=== PATIENT | female | born 1945 | race Caucasian/White ===

== ENCOUNTER → 2019-10-04 | Outpatient (CLI) | payer MEDICARE, OTHER ==
[~2019-10-04] MED LIST: ASPI-515 PO; B2/V1TAB PO; BIFI4CAP PO; CALC-138 PO; CHOL200052 PO; ESTR42.53 VG; FLUT16SP2 NAS; HYDR25TA6 PO; MULT-717 PO; OMEG1CAP49 PO; POLY119P4 PO; SIMV20TA19 PO
== END | disposition home or self-care (01) ==
LOC: CFH 10:10
PROVIDERS: ATTEND Internal Medicine Hematology & Oncology
DX: C50.912 Malignant neoplasm of unspecified site of left female breast (principal); M85.88 Other specified disorders of bone density and structure, other site
CPT/HCPCS: 77080

== ENCOUNTER → 2019-12-09 | Outpatient (CLI) | payer MEDICARE, OTHER ==
[~2019-12-09] MED LIST changes: +PARO7.5C PO
[2019-12-09 11:55] LABS: INTERNATIONAL NORMALIZED RATIO 0.93 (0.93-1.1); PROTHROMBIN TIME 9.9 Seconds (9.6-11.5)
== END | disposition home or self-care (01) ==
LOC: STAR 10:35
PROVIDERS: ATTEND Orthopaedic Surgery
DX: Z01.818 Encounter for other preprocedural examination (principal); M16.12 Unilateral primary osteoarthritis, left hip; M25.552 Pain in left hip
CPT/HCPCS: 36415; 85610; 85730; 87081; 93005

== ENCOUNTER 2019-12-21 06:49 | Day surgery (SDC) | payer MEDICARE, OTHER ==
[2019-12-09 11:35] VITALS: BP 150/87
[~2019-12-21] VITALS: Ht 160 cm; Wt 63.6 kg
[~2019-12-21 06:49] MED LIST changes: +EPINEPHRINE 1 MG/ML, 1ML ONE; +KETOROLAC 60 MG/2 ML ONE; +ROPIvacaine/PF 0.5%, 20 ML ONE; +ROPIvacaine/PF 0.5%, 30 ML ONE; +SODIUM CHLORIDE 0.9% 50 ML ONE; +TRANEXAMIC ACID 100 MG/ML, 10ML ONE; +VANCOMYCIN 1,000 MG ONE
[2019-12-21] MEDS ORDERED: LACTATED RINGERS 1,000 ML IV SCH (07:16)
[2019-12-21] MEDS ORDERED: FENTANYL PF 250 MCG/5ML ONE (07:30)
[2019-12-21] MEDS ORDERED: LIDOCAINE-MPF 1%, 2ML INFIL ONE (07:30)
[2019-12-21] MEDS ORDERED: GABAPENTIN 300 MG CAPSULE PO ONE (07:30)
[2019-12-21] MEDS ORDERED: CHLORHEXIDINE 15 ML UDC MM ONE (07:30)
[2019-12-21] MEDS ORDERED: ACETAMINOPHEN 500 MG TABLET PO ONE (07:30)
[2019-12-21] MEDS ORDERED: ROCURONIUM 10MG/ML,5ML ONE (07:37)
[2019-12-21] MEDS ORDERED: NEOSTIGMINE 1 MG/ML, 10ML ONE (07:37)
[2019-12-21] MEDS ORDERED: ONDANSETRON 2MG/ML, 2ML ONE (07:37)
[2019-12-21] MEDS ORDERED: GLYCOPYRROLATE 0.2MG/1ML, 5ML ONE (07:37)
[2019-12-21] MEDS ORDERED: DEXAMETHASONE 4 MG/ML, 1ML ONE (07:37)
[2019-12-21] MEDS ORDERED: CEFAZOLIN 1,000 MG ONE (07:37)
[2019-12-21] MEDS ORDERED: PROPOFOL 10 MG/ML, 20ML ONE (07:37)
[2019-12-21] MEDS ORDERED: SUCCINYLCHOLINE 20 MG/ML, 10ML ONE (07:37)
[2019-12-21] MEDS ORDERED: NS + 20MEQ KCL 1,000 ML IV SCH (08:22)
[2019-12-21] MEDS ORDERED: ONDANSETRON 2MG/ML, 2ML IV PRN (08:30)
[2019-12-21] MEDS ORDERED: HYDROmorphone 1 MG/ML, 1ML INJ IVPush PRN (08:30)
[2019-12-21] MEDS ORDERED: LABETALOL 5MG/ML, 20ML IV PRN (08:30)
[2019-12-21] MEDS ORDERED: MAGNESIUM HYDROXIDE 8%, 30ML UDC PO PRN (08:30)
[2019-12-21] MEDS ORDERED: PROMETHAZINE 25 MG SUPP PR PRN (08:30)
[2019-12-21] MEDS ORDERED: BISACODYL 10 MG SUPP PR PRN (08:30)
[2019-12-21] MEDS ORDERED: OXYcodone IR 5MG TABLET PO PRN (08:30)
[2019-12-21] MEDS ORDERED: DIAZEPAM 5 MG/ML, 2ML IVPush PRN (08:30)
[2019-12-21] MEDS ORDERED: METHOCARBAMOL 1,000 MG in DEXTROSE 5% 100 ML IV PRN (08:30)
[2019-12-21] MEDS ORDERED: MEPERIDINE/PF 25MG/0.5ML IVPush PRN (08:30)
[2019-12-21] MEDS ORDERED: HYDROcodone/APAP 5/325 TABLET PO PRN (08:30)
[2019-12-21] MEDS ORDERED: hydrALAzine 20 MG/ML, 1ML IV PRN (08:30)
[2019-12-21] MEDS ORDERED: ONDANSETRON 4 MG TABLET PO PRN (08:30)
[2019-12-21] MEDS ORDERED: DIPHENHYDRAMINE 25 MG CAPSULE PO PRN (08:30)
[2019-12-21] MEDS ORDERED: ONDANSETRON 2MG/ML, 2ML IVPush PRN (08:30)
[2019-12-21] MEDS ORDERED: SENNA/DOCUSATE TABLET PO PRN (08:30)
[2019-12-21] MEDS ORDERED: ZOLPIDEM 5MG TABLET PO PRN (08:30)
[2019-12-21] MEDS ORDERED: LORazepam 2 MG/ML, 1ML IVPush PRN (08:30)
[2019-12-21] MEDS ORDERED: ACETAMINOPHEN 650 MG/20.3 ML UDC PO PRN (08:30)
[2019-12-21] MEDS ORDERED: HYDROcodone/APAP 7.5-325MG/15ML UDC PO PRN (08:30)
[2019-12-21] MEDS ORDERED: PROMETHAZINE 25 MG/ML, 1ML IVPush PRN (08:30)
[2019-12-21] MEDS ORDERED: hydrALAzine 20 MG/ML, 1ML ONE (08:45)
[2019-12-21] MEDS ORDERED: HYDROCHLOROTHIAZIDE 25 MG TABLET PO SCH (09:00)
[2019-12-21] MEDS ORDERED: SIMVASTATIN 20 MG TABLET PO SCH (09:00)
[2019-12-21] MEDS ORDERED: DOCUSATE 100 MG CAPSULE PO SCH (09:00)
[2019-12-21] MEDS ORDERED: PAROXETINE MESYLATE 7.5 MG HOMEMEDPO SCH (09:00)
[2019-12-21] MEDS ORDERED: FENTANYL PF 100 MCG/2ML ONE ×2 (09:26→10:20)
[2019-12-21] MEDS ORDERED: OXYcodone 5 MG/5 ML ORAL.SOL UDC ONE (10:20)
[2019-12-21] MEDS: FENTANYL PF 100 MCG/2ML IV PRN ×4 (10:25→10:40)
[2019-12-21 12:22] VITALS: BP 96/56
[2019-12-21] MEDS ORDERED: OXYC5TAB3 PO (14:54)
[2019-12-21] MEDS ORDERED: MELO7.5T31 PO (14:55)
[2019-12-21] MEDS ORDERED: TRAM50TA2 PO (14:55)
[2019-12-21 15:00] VITALS: BP 100/63
[2019-12-21] MEDS ORDERED: CEFAZOLIN PMX 2GM/50ML 50 ML IVPB SCH (15:30)
[2019-12-21] MEDS ORDERED: ASPIRIN 81 MG TABLET EC PO SCH (18:00)
[2019-12-22] MEDS ORDERED: DEXAMETHASONE 4 MG/ML, 1ML IVPush SCH (06:00)
== END 2019-12-21 15:55 | disposition home or self-care (01) ==
LOC: OUT 06:49 → 4NE 11:13 → OUT 15:55
PROVIDERS: ATTEND Orthopaedic Surgery
DX: M16.12 Unilateral primary osteoarthritis, left hip (principal); Z11.59 Encounter for screening for other viral diseases; M25.752 Osteophyte, left hip; I10 Essential (primary) hypertension; Z79.82 Long term (current) use of aspirin; Z79.899 Other long term (current) drug therapy; Z87.891 Personal history of nicotine dependence; Z85.3 Personal history of malignant neoplasm of breast; Z88.5 Allergy status to narcotic agent; Z96.641 Presence of right artificial hip joint; Z82.61 Family history of arthritis; Z82.3 Family history of stroke; Z82.49 Family history of ischemic heart disease and other diseases of the circulatory system
CPT/HCPCS: 27130; 36415; 72170; 73501; 76000; 87635; 97162; C1713; C1776; J0171; J0330; J0360; J0690; J1100; J1885; J2405; J2704; J2710; J2795; J3010; J3370; J3480; J7120; G0378